=== PATIENT | male | born 1965 | race Two or more races ===

== ENCOUNTER 2023-04-05 12:29 | Emergency (ER) | payer MEDICAID ==
[~2023-04-05 12:29] MED LIST: CHLO100T8; DIVA125T12; DIVA1TAB59; EMTRTAB7; HYDR-4833; VENL25TA
== END 2023-04-05 13:13 | disposition left against medical advice (07) ==
LOC: ER 12:29
DX: R22.9 Localized swelling, mass and lump, unspecified (principal); Z53.21 Procedure and treatment not carried out due to patient leaving prior to being seen by health care provider